=== PATIENT | female | born 1965 | race Caucasian/White ===

== ENCOUNTER 2019-01-02 22:42 | Inpatient (IN) | payer OTHER ==
[~2019-01-02] VITALS: Ht 160 cm; Wt 109.3 kg
[~2019-01-02 22:42] MED LIST: ATEN50TA8 PO; METF500T2 PO
[2019-01-02 22:46] VITALS: BP 170/98
--- NOTE | 2019-01-02 22:54 | NUR ---
MEDICATED PER FEVER PROTOCOL, SENT TO LOBBY AWAITING BED IN ED.
[2019-01-02] MEDS ORDERED: ACETAMINOPHEN EXTRA STRENGTH 500 MG TAB PO ONE (22:55)
[2019-01-02] MEDS ORDERED: ACETAMINOPHEN EXTRA STRENGTH 500 MG TAB ONE (23:02)
--- NOTE | 2019-01-02 23:04 | NUR ---
PT AMBULATED TO BED #4
[2019-01-02] MEDS ORDERED: NACL 0.9% 500 ML IV SCH (23:42)
--- NOTE | 2019-01-02 23:42 | NUR ---
pt came to ER c/o fever and suprapubic/lower abdominal pain radiating to lower back. Bowel sounds active x4 quadrants. PT abdomen non-tender to touch. Last BM 01/02/2019. Med hx: DM and HTN. Safety measures in place. waiting for ermd to evaluate pt.
--- NOTE | 2019-01-02 23:52 | NUR ---
pt taken to CT/X-ray
[2019-01-03 00:19] LABS: APPEARANCE,URINE HAZY (CLEAR); BILIRUBIN,URINE NEGATIVE (NEGATIVE); BLOOD, URINE 2+ (NEGATIVE); COLOR,URINE YELLOW (YELLOW); LEUKOCYTE ESTERASE ,URINE 1+ (NEGATIVE); NITRITE, URINE POSITIVE (NEGATIVE); PH,URINE 5.5 (5.0-9.0); UGLUCOSE NEGATIVE (NEGATIVE)
[2019-01-03 00:28] LABS: HEMATOCRIT 44.2 % (36-48); HEMOGLOBIN 14.9 g/dL (12.0-16.0); MEAN CORPUSCULAR HEMOGLOBIN 31 pg (27-31); MEAN CORPUSCULAR HGB CONC 34 g/dL (33-37); PLATELET COUNT (AUTO) 264 K/uL (140-450); WHITE BLOOD COUNT (AUTO) 16.7 K/uL (4.8-10.8)
--- NOTE | 2019-01-03 00:30 | NUR ---
pt ambulated to bathroom. PT vomited x1. pt c/o of abdominal pain worsening 10/10 pain.
[2019-01-03 00:32] LABS: WBC,URINE TOO MANY TO COUNT /HPF (0-5)
[2019-01-03] MEDS ORDERED: KETOROLAC 30 MG/ML VIAL IVP ONE (00:40)
[2019-01-03 00:44] LABS: LYMPHOCYTES % (MANUAL) 2 % (20-46); MONOCYTES % (MANUAL) 5 % (5-12)
[2019-01-03 00:50] LABS: PROTHROMBIN TIME 9.4 secs (10.8-13.4)
[2019-01-03 00:56] LABS: CARBON DIOXIDE 24.9 mmol/L (21-32); CREATININE 1.3 mg/dL (0.6-1.3); POTASSIUM 3.9 mmol/L (3.5-5.1)
[2019-01-03] MEDS ORDERED: cefTRIAXone 1,000 MG VIAL ONE (00:56)
[2019-01-03] MEDS ORDERED: NACL 0.9% 3,000 ML IV ONE (01:00)
[2019-01-03 01:01] LABS: ALBUMIN 3.8 g/dL (3.4-5.0); TOTAL BILIRUBIN 0.6 mg/dL (0.0-1.0)
[2019-01-03] MEDS ORDERED: NIFE10SG6 PO (01:01)
[2019-01-03] MEDS ORDERED: MORPHINE SULFATE 4 MG/ML SYR IVP PRN (01:10)
[2019-01-03] MEDS ORDERED: DEXTROSE 50% 50 ML SYR IVP PRN (01:10)
[2019-01-03] MEDS ORDERED: HYDROcodone/APAP 5/325 MG 1 TAB TAB PO PRN (01:10)
[2019-01-03] MEDS ORDERED: ONDANSETRON 4 MG/2 ML VIAL IVP PRN (01:10)
[2019-01-03] MEDS ORDERED: hydrALAZINE 20 MG/ML VIAL IVP PRN (01:10)
[2019-01-03 02:00] VITALS: BP 144/73
--- NOTE | 2019-01-03 02:00 | NUR ---
Transfer of care and report given to MERRICK Hermosillo.
--- NOTE | 2019-01-03 02:00 | NUR ---
RECEIVED PT FROM ER NURSE, ABIGAIL. PT CAME IN [facility] AND AMBULATED TO [facility] BED. SPOUSE AT BEDSIDE, NO SOB OR ANY RESP. DISTRESS NOTED ON ROOM AIR. SKIN INTACT, WARM AND DRY TO TOUCH. IV SITE ON LAC, 20G, PATENT, INTACT AND ASYMPTOMATIC. DX PYELONEPHRITIS, MRSA NARES SWAB, VS CHECKED, BOARD UPDATED, ORIENT ROOM TO PT. INFORM HOW TO USE CALL LIGHT. BED IN LOW POSITION. CALL LIGHT WITHIN REACH. WILL CONTINUE TO MONITOR.
--- NOTE | 2019-01-03 02:05 | NUR ---
Patient will be admitted to care of Dr. Moreno. Admited to Tele. Will go to room 120b. Belongings list completed. Report to gavino morris.
[2019-01-03 04:00] VITALS: BP 139/52
--- NOTE | 2019-01-03 04:05 | NUR ---
VS CHECKED, WITHIN NORMAL RANGE. WILL CONTINUE TO MONITOR.
--- NOTE | 2019-01-03 04:35 | NUR ---
LAB CALLED AND INFORMED PT'S LACTIC ACID 2.1. DID NOT CALL D/T IT IS TRENDING DOWN FROM 2.8.
[2019-01-03] MEDS: INSULIN LISPRO SLIDING SCALE 100 UNITS/ML VIAL SUBQ PRN ×4 (05:42→21:08)
--- NOTE | 2019-01-03 05:42 | NUR ---
BS CHECKED, 300. ADMINISTERED INSULIN MD ORDERED. PT TOLERATED WELL. WILL CONTINUE TO MONITOR.
[2019-01-03] MEDS: BLOOD GLUCOSE MONITORING 1 DEV DEV FS SCH ×4 (05:43→21:07)
--- NOTE | 2019-01-03 07:14 | NUR ---
ENDORSED PT TO DAY SHIFT NURSE. PT IN STABLE CONDITION.
--- NOTE | 2019-01-03 07:15 | NUR ---
RECEIVED ENDORSEMENT FROM SERGEANT OF OFFICERS NURSE. PATIENT IS AAOX4, LEBAN[place] SPEAKING. RESPIRATIONS ARE EVEN AND UNLABORED ON ROOM AIR. PATIENT DENIES ANY PAIN AT THIS TIME. LEFT AC 20G IV INTACT AND SL. PLAN OF CARE WAS REVIEWED WITH PATIENT, PATIENT VERBALIZED UNDERSTANDING. SAFETY MEASURES IN PLACE, CALL LIGHT WITHIN REACH.
[2019-01-03 08:00] VITALS: BP 148/76
--- NOTE | 2019-01-03 08:47 | NUR ---
PATIENT HAS BEEN SCREENED AND CATEGORIZED HIGH NUTRITION RISK. PATIENT WILL BE SEEN WITHIN 1-2 DAYS OF ADMISSION. 01/03/19-01/04/19
[2019-01-03] MEDS ORDERED: NON-FORMULARY ITEM (Metformin HCl* (Glucophage Xr*) 500 MG) PO SCH (09:00)
[2019-01-03] MEDS ORDERED: NIFEdipine 10 MG CAPLF PO SCH (09:00)
--- NOTE | 2019-01-03 09:00 | NUR ---
PATIENT GIVEN HAT AND INSTRUCTED TO URINATE IN IT FOR STRICT I & O'S. PATIENT VERBALIZED UNDERSTANDING. NO OTHER NEEDS AT THIS TIME, WILL CONTINUE TO MONITOR.
[2019-01-03] MEDS: ATENOLOL 50 MG TAB PO SCH ×2 (09:15→21:05)
[2019-01-03] MEDS: ENOXAPARIN 40 MG/0.4 ML SYR SUBQ SCH (09:17)
--- NOTE | 2019-01-03 09:23 | NUR ---
ADMINISTERED SCHEDULED MEDICATIONS. PATIENT TOLERATED WELL. EDUCATED PATIENT ON USE OF LOVENOX IN [place], PATIENT VERBALIZED UNDERSTANDING. PATIENT DENIES ANY PAIN AT THIS TIME, NO OTHER NEEDS AT THIS TIME. Addendum: 01/03/19 at 1431 by Amy Florentino RN FAMILY PRESENT AT THE BEDSIDE.
--- NOTE | 2019-01-03 11:20 | NUR ---
PATIENT RESTING. FAMILY IS PRESENT AT BEDSIDE. NO OTHER NEEDS AT THIS TIME, WILL CONTINUE TO MONITOR.
[2019-01-03] MEDS: ACETAMINOPHEN 325 MG TAB PO PRN ×3 (11:25→21:04)
[2019-01-03 12:00] VITALS: BP 163/84
--- NOTE | 2019-01-03 12:05 | NUR ---
ADMINISTERED INSULIN PER SLIDING SCALE. PATIENT DENIES ANY PAIN AT THIS TIME. NO OTHER NEEDS AT THIS TIME.
--- NOTE | 2019-01-03 12:29 | NUR ---
ADMINISTERED HYDRALAZINE PRN IVP FOR BP OF 163/84. PATIENT TOLERATED WELL. NO OTHER NEEDS AT THIS TIME.
--- NOTE | 2019-01-03 14:03 | NUR ---
01/03/19 RD INITIAL ASSESSMENT COMPLETED PLEASE REFER TO NUTRITION ASSESSMENT UNDER CARE ACTIVITY FOR ESTIMATED NUTRITIONAL NEEDS. RD RECOMMENDATIONS: 1. RECOMMEND ADDING LOW NA DIET ONTO CURRENT DIET D/T PT WITH HTN AND ELEVATED BLOOD PRESSURE. 2. DM AND LOW NA DIET WAS PROVIDED TO PT. 3. RD WILL F/U IN 7 DAYS; LOW RISK. APARNA STERLING, RD
--- NOTE | 2019-01-03 14:08 | NUR ---
[place] LIRA FOR PATIENTS BP OF 165/74 AFTER GIVING HYDRALAZINE PRN IVP. PENDING CALL BACK Addendum: 01/03/19 at 1433 by Amy Florentino RN PATIENT IS ASYMPTOMATIC AT THIS TIME.
--- NOTE | 2019-01-03 14:13 | NUR ---
PER DR. LIRA TO KEEP SBP BELOW 180. SBP 160 IS OK.
[2019-01-03 16:00] VITALS: BP 143/115
--- NOTE | 2019-01-03 16:08 | NUR ---
ADMINISTERED TYLENOL FOR TEMP OF 100.6. PATIENT REPORTS CHILLS. NO OTHER NEEDS AT THIS TIME. WILL FOLLOW UP.
--- NOTE | 2019-01-03 17:30 | NUR ---
PATIENT RESTING. PRESENT AT BEDSIDE NO OTHER NEEDS AT THIS TIME. DENIES ANY CHILLS, NO FEVER.
--- NOTE | 2019-01-03 19:20 | NUR ---
ENDORSED TO RAIL SWITCHMAN NURSE FOR CONTINUITY OF CARE. PATIENT IS STABLE AT THIS TIME.
--- NOTE | 2019-01-03 19:25 | NUR ---
RECEIVED PT FROM OLESYA RN PT MAORI SPEAKER AAOX4 AMBULATORY, MORBIDE OBESITY ON TELEMETRY SR HL ON LEFT AC PATENT INITIAL ASSESSMENT DONE
[2019-01-03] MEDS ORDERED: NIFE30TE5 PO (19:49)
[2019-01-03 20:00] VITALS: BP 168/88
--- NOTE | 2019-01-03 21:30 | NUR ---
BLOOD SUGAR TEST 169 COVERAGE WITH 2 UNITS SUBQ HUMALOG FOLLOW PROTOCOL
[2019-01-04] VITALS: BP 132/52
--- NOTE | 2019-01-04 | NUR ---
PT AMBULATES TO THE RESTROOM VOIDING WELL ON TELMETRY SR NOT DISTRESS NOTEE
--- NOTE | 2019-01-04 02:27 | NUR ---
PT SLEEPING WELL NOT FEVER NO PAIN REMAIN STABLE AT THIS TIME
[2019-01-04 04:00] VITALS: BP 123/78
--- NOTE | 2019-01-04 05:00 | NUR ---
PT HAS BEEN MONITORING CLOSE NOT SOB NOTED VOIDING WELL LINEN CHANGED ON TELE SR
[2019-01-04] MEDS: BLOOD GLUCOSE MONITORING 1 DEV DEV FS SCH ×4 (06:25→20:27)
[2019-01-04] MEDS: INSULIN LISPRO SLIDING SCALE 100 UNITS/ML VIAL SUBQ PRN ×4 (06:26→20:27)
--- NOTE | 2019-01-04 06:39 | NUR ---
BLOOD SUGAR TEST 205 COVERAGE WITH HUMALOG SUBQ 4 UNITS FOLLOW PROTOCOL
--- NOTE | 2019-01-04 06:40 | NUR ---
PT WILL BE ENDORSED TO DAY SHIFT NURSE FOR CONTINUE OF CARE .
--- NOTE | 2019-01-04 07:25 | NUR ---
RECEIVED ENDORSEMENT FROM WIRER NURSE. PATIENT IS AAOX4, GHANA[place] SPEAKING. RESPIRATIONS ARE EVEN AND UNLABORED ON ROOM AIR. PATIENT DENIES ANY PAIN AT THIS TIME. LEFT AC 20G IV INTACT AND SL. PLAN OF CARE WAS REVIEWED WITH PATIENT. PATIENT VERBALIZED UNDERSTANDING. SAFETY MEASURES IN PLACE, CALL LIGHT WITHIN REACH.
[2019-01-04 07:42] LABS: BASOPHILS % (AUTO) 0.3 % (0.0-2.0); HEMATOCRIT 39.8 % (36-48); HEMOGLOBIN 13.5 g/dL (12.0-16.0); LYMPHOCYTES # (AUTO) 0.6 K/uL (2.5-16.5); LYMPHOCYTES % (AUTO) 10.1 % (20.5-51.1); MEAN CORPUSCULAR HEMOGLOBIN 31 pg (27-31); MEAN CORPUSCULAR HGB CONC 34 g/dL (33-37); MEAN CORPUSCULAR VOLUME 92.1 fL (80-94); MONOCYTES # (AUTO) 0.3 K/uL (0.8-1.0); MONOCYTES % (AUTO) 4.9 % (1.7-9.3); NEUTROPHILS # (AUTO) 5.1 K/uL (1.8-7.7); NEUTROPHILS % (AUTO) 84.7 % (42.2-75.2); PLATELET COUNT (AUTO) 200 K/uL (140-450); RED BLOOD CELL COUNT(AUTO) 4.32 MIL/uL (4.20-5.40)
[2019-01-04 08:00] VITALS: BP 131/59
[2019-01-04 08:13] LABS: CREATININE 1.2 mg/dL (0.6-1.3); POTASSIUM 3.4 mmol/L (3.5-5.1)
[2019-01-04 08:18] LABS: CARBON DIOXIDE 25.4 mmol/L (21-32)
[2019-01-04 08:22] LABS: MAGNESIUM 1.8 mg/dL (1.8-2.4); PHOSPHORUS 2.5 mg/dL (2.5-4.9)
[2019-01-04] MEDS: ATENOLOL 50 MG TAB PO SCH ×2 (08:25→20:22)
[2019-01-04] MEDS: ACETAMINOPHEN 325 MG TAB PO PRN ×3 (08:25→23:58)
--- NOTE | 2019-01-04 08:25 | NUR ---
ADMINISTERED PRN TYLENOL FOR TEMPERATURE OF 100.6. PATIENT TOLERATED WELL. NO OTHER NEEDS AT THIS TIME
[2019-01-04] MEDS: ENOXAPARIN 40 MG/0.4 ML SYR SUBQ SCH (08:26)
--- NOTE | 2019-01-04 08:27 | NUR ---
ADMINISTERED SCHEDULED MEDICATIONS. PATIENT TOLERATED WELL. NO OTHER NEEDS AT THIS TIME, WILL CONTINUE TO MONITOR.
--- NOTE | 2019-01-04 09:25 | NUR ---
PATIENT TEMP NO 99.2. PATIENT DENIES ANY PAIN AT THIS TIME. NO OTHER NEEDS AT THIS TIME, WILL CONTINUE TO MONITOR.
[2019-01-04] MEDS ORDERED: MAGNESIUM OXIDE 400 MG TAB PO SCH (10:02)
[2019-01-04] MEDS ORDERED: POTASSIUM CHLORIDE 10 MEQ TABER PO SCH (10:02)
--- NOTE | 2019-01-04 10:30 | NUR ---
ADMINISTERED SCHEDULED MEDICATIONS. PATIENT TOLERATED WELL. PATIENT DENIES ANY PAIN AT THIS TIME. NO OTHER NEEDS AT THIS TIME. IS PRESENT AT THE BEDSIDE.
[2019-01-04 12:00] VITALS: BP 147/74
--- NOTE | 2019-01-04 12:30 | NUR ---
ADMINISTERED SCHEDULED MEDICATIONS. PATIENT DENIES ANY PAIN AT THIS TIME. NO OTHER NEEDS AT THIS TIME, WILL CONTINUE TO MONITOR.
--- NOTE | 2019-01-04 14:41 | NUR ---
PATIENT IS SLEEPING, EASILY AROUSABLE. PATIENT DENIES ANY PAIN AT THIS TIME. NO OTHER NEEDS AT TIME, WILL CONTINUE TO MONITOR.
[2019-01-04 16:00] VITALS: BP 117/60
--- NOTE | 2019-01-04 16:11 | NUR ---
ADMINISTERED TYLENOL FOR TEMPERATURE OF 102.8. APPLIED ICE PACKS TO ARMPITS. EDUCATED PATIENT AGAIN ON KEEPING BLANKET OFF, PATIENT IS NONADHERENT TO INSTRUCTIONS.
--- NOTE | 2019-01-04 16:25 | NUR ---
RECHECKED TEMPERATURE, NOW 99.1. PATIENT DENIES ANY PAIN AT THIS TIME. NO OTHER NEEDS AT THIS TIME, WILL CONTINUE TO MONITOR.
--- NOTE | 2019-01-04 17:14 | NUR ---
PATIENT RESTING IN BED. DENIES ANY PAIN AT THIS TIME. NO OTHER NEEDS AT THIS TIME, WILL CONTINUE TO MONITOR.
--- NOTE | 2019-01-04 19:13 | NUR ---
ENDORSED TO IRRIGATION FOREMAN NURSE MARLON FOR CONTINUITY OF CARE. PATIENT IS STABLE AT THIS TIME.
--- NOTE | 2019-01-04 19:15 | NUR ---
RECEIVED BEDSIDE REPORT. PT IS AAOX4. TURKISH SPEAKING ONLY. ON ROOM AIR RESPIRATIONS ARE EQUAL AND UNLABORED. SKIN IS INTACT. IV ON LAC 20G SL. AT BEDSIDE. PT IS AMBULATORY PER NURSE. PLAN OF CARE DISCUSSED WITH PATIENT. CALL LIGHT IS WITHIN REACH. WILL ROUND FREQUENTLY.
[2019-01-04 20:00] VITALS: BP 142/64
--- NOTE | 2019-01-04 20:22 | NUR ---
VITAL SIGNS ARE WITHIN NORMAL LIMITS. 142/64 HR 62. BG 260 ADMINISTERED SCHEDULED MEDICATION AND INSULIN PER PROTOCOL. ALL NEEDS MET AT THIS TIME. CALL LIGHT IS WITHIN REACH. WILL ROUND FREQUENTLY.
--- NOTE | 2019-01-04 22:15 | NUR ---
PATIENT IS SLEEPING COMFORTABLY IN BED. SAFETY MEASURES ARE IN PLACE. CALL LIGHT IS WITHIN REACH. WILL CONTINUE TO MONITOR.
[2019-01-04] MEDS ORDERED: cefTRIAXone 1,000 MG VIAL ONE (23:18)
[2019-01-05] VITALS: BP 160/63
--- NOTE | 2019-01-05 | NUR ---
VITAL SIGNS ARE WITHIN NORMAL LIMITS. TEMP 100.2 COOLING MEASURES SUCH AC HIGH AND REMOVING BLANKETS ARE IN PLACE. PATIENT COMPLAIN OF HEADACHE 3/10 TYLENOL GIVEN. CALL LIGHT IS WITHIN REACH. WILL CONTINUE TO MONITOR.
--- NOTE | 2019-01-05 02:00 | NUR ---
PATIENT IS SLEEPING COMFORTABLY IN BED. RESPIRATIONS ARE EQUAL AND UNLABORED. NO S/S OF DISTRESS. WILL CONTINUE TO MONITOR.
[2019-01-05 04:00] VITALS: BP 143/50
--- NOTE | 2019-01-05 04:20 | NUR ---
VITAL SIGNS ARE WITHIN NORMAL LIMITS. ALL NEEDS MET AT THIS TIME CALL LIGHT IS WITHIN REACH.
[2019-01-05 05:51] LABS: BASOPHILS % (AUTO) 0.8 % (0.0-2.0); EOSINOPHILS % (AUTO) 0.3 % (0.0-4.0); HEMATOCRIT 40.1 % (36-48); HEMOGLOBIN 13.6 g/dL (12.0-16.0); LYMPHOCYTES # (AUTO) 0.8 K/uL (2.5-16.5); LYMPHOCYTES % (AUTO) 21.7 % (20.5-51.1); MEAN CORPUSCULAR HEMOGLOBIN 31 pg (27-31); MEAN CORPUSCULAR HGB CONC 34 g/dL (33-37); MEAN CORPUSCULAR VOLUME 92.5 fL (80-94); MONOCYTES # (AUTO) 0.4 K/uL (0.8-1.0); MONOCYTES % (AUTO) 10.3 % (1.7-9.3); NEUTROPHILS # (AUTO) 2.4 K/uL (1.8-7.7); NEUTROPHILS % (AUTO) 66.9 % (42.2-75.2); PLATELET COUNT (AUTO) 193 K/uL (140-450); RED BLOOD CELL COUNT(AUTO) 4.34 MIL/uL (4.20-5.40); RED CELL DISTRIBUTION WIDTH 13.3 % (11.6-13.7); WHITE BLOOD COUNT (AUTO) 3.6 K/uL (4.8-10.8)
[2019-01-05 06:10] LABS: ANION GAP 10.8 (8-16); CARBON DIOXIDE 27.8 mmol/L (21-32); POTASSIUM 3.6 mmol/L (3.5-5.1)
[2019-01-05 06:21] LABS: MAGNESIUM 2.1 mg/dL (1.8-2.4); PHOSPHORUS 3.2 mg/dL (2.5-4.9)
[2019-01-05] MEDS: INSULIN LISPRO SLIDING SCALE 100 UNITS/ML VIAL SUBQ PRN ×2 (06:47→12:20)
[2019-01-05] MEDS: BLOOD GLUCOSE MONITORING 1 DEV DEV FS SCH ×2 (06:47→12:06)
--- NOTE | 2019-01-05 07:12 | NUR ---
GAVE BEDSIDE REPORT TO DAY SHIFT RN. PT IN STABLE CONDITION.
--- NOTE | 2019-01-05 07:13 | NUR ---
RECEIVED ENDORSEMENT FROM BULLET ASSEMBLY PRESS OPERATOR NURSE MARLON. PATIENT IS AAOX4, [place] ISLANDER SPEAKING. RESPIRATIONS ARE EVEN AND UNLABORED ON ROOM AIR. PATIENT DENIES ANY PAIN AT THIS TIME. LEFT 20G IV INTACT AND SL. PLAN OF CARE WAS REVIEWED, PATIENT VERBALIZED UNDERSTANDING. SAFETY MEASURES IN PLACE, CALL LIGHT WITHIN REACH.
[2019-01-05 08:00] VITALS: BP 139/69
[2019-01-05] MEDS: ATENOLOL 50 MG TAB PO SCH (08:43)
[2019-01-05] MEDS: ENOXAPARIN 40 MG/0.4 ML SYR SUBQ SCH (08:44)
--- NOTE | 2019-01-05 08:45 | NUR ---
ADMINISTERED SCHEDULED MEDICATIONS. PATIENT TOLERATED WELL. PATIENT DENIES PAIN, NO OTHER NEEDS AT THIS TIME, WILL CONTINUE TO MONITOR.
--- NOTE | 2019-01-05 10:15 | NUR ---
PATIENT REQUESTED TO SHOWER. TOOK OFF HEAD OF MAINTENANCE. GAVE PATIENT TOWELS. ESCORTED PATIENT TO BATH. NO OTHER NEEDS AT THIS TIME. PATIENT AMBULATED TO SHOWER WITH STEADY GAIT.
[2019-01-05] MEDS ORDERED: CIPR500T4 PO (11:20)
[2019-01-05 12:00] VITALS: BP 162/62
--- NOTE | 2019-01-05 12:25 | NUR ---
ADMINISTERED SCHEDULED MEDICATION. PATIENT TOLERATED WELL. PATIENT DENIES ANY PAIN AT THIS TIME. NO OTHER NEEDS AT THIS TIME.
--- NOTE | 2019-01-05 13:15 | NUR ---
EDUCATED PATIENT ON DIABETES. PATIENT VERBALIZED UNDERSTANDING. PATIENT DENIES ANY PAIN AT THIS TIME. NO OTHER NEEDS AT THIS TIME, WILL CONTINUE TO MONITOR.
--- NOTE | 2019-01-05 15:00 | NUR ---
DISCHARGE INSTRUCTIONS PROVIDED TO PATIENT. ANSWERED ALL QUESTIONS AND CONCERNS. PRESCRIPTION WAS GIVEN. IV WAS REMOVED, CANNULA INTACT WITH MINIMAL BLEEDING. PATIENT TO GO HOME ONCE FAMILY PICKS HER UP.
--- NOTE | 2019-01-05 15:30 | NUR ---
PATIENT LEFT UNIT. ALL BELONGINGS LEFT WITH PATIENT. PATIENT IS STABLE AT THIS TIME.
== END 2019-01-05 15:30 | disposition home or self-care (01) | DRG 720 ==
LOC: MED 22:42 → MTU 01-03 01:08
PROVIDERS: ADMIT Internal Medicine Pulmonary Disease; ATTEND Internal Medicine Pulmonary Disease
DX: A41.9 Sepsis, unspecified organism (principal); E11.22 Type 2 diabetes mellitus with diabetic chronic kidney disease; E66.01 Morbid (severe) obesity due to excess calories; N10 Acute pyelonephritis; I12.9 Hypertensive chronic kidney disease with stage 1 through stage 4 chronic kidney disease, or unspecified chronic kidney disease; N18.2 Chronic kidney disease, stage 2 (mild); Z68.41 Body mass index [BMI] 40.0-44.9, adult
CPT/HCPCS: 36415; 71045; 80048; 80053; 81001; 82948; 83605; 83735; 84100; 85025; 85610; 85730; 87040; 87081; 87086; 87186; 93005; 96365; 96375; 99285; J0360; J0696; J1650; J1815; J1885; J7030; J7060